=== PATIENT | male | born 1945 | race Caucasian/White ===

== ENCOUNTER 2023-01-20 07:43 | Observation (INO) | payer MEDICARE ==
[2023-01-19 12:08] LABS: BASOPHILS # (AUTO) 0.06 K/uL (0.00-0.20); BASOPHILS % (AUTO) 0.9 % (0.0-5.0); EOSINOPHILS # (AUTO) 0.22 K/uL (0.00-0.70); EOSINOPHILS % (AUTO) 3.4 % (0.0-8.0); HEMATOCRIT 46.4 % (42-54); IMMATURE GRANULOCYTE ABSOLUTE 0.02 K/uL (0-1); LYMPHOCYTES # (AUTO) 1.4 K/uL (1.0-4.8); LYMPHOCYTES % (AUTO) 22.2 % (21.0-51.0); MEAN CORPUSCULAR HEMOGLOBIN 29.7 pg (27.0-33.0); MEAN CORPUSCULAR HGB CONC 33.6 g/dL (32.0-36.0); MEAN CORPUSCULAR VOLUME 88.2 fL (79-99); MONOCYTES # (AUTO) 0.7 K/uL (0.1-1.0); MONOCYTES % (AUTO) 10.3 % (3.0-13.0); NEUTROPHILS % (AUTO) 62.9 % (40.0-77.0); PLATELET COUNT (AUTO) 245 K/uL (130-400); RED BLOOD CELL COUNT(AUTO) 5.26 MIL/uL (4.50-6.20); RED CELL DISTRIBUTION WIDTH 13.1 % (11.0-15.5); WHITE BLOOD COUNT (AUTO) 6.4 K/uL (4.8-10.8)
[2023-01-19 12:13] LABS: INR 0.97 (0.85-1.15); PROTHROMBIN TIME 11.3 SEC (9.6-11.6)
[2023-01-19 12:14] LABS: PARTIAL THROMBOPLASTIN TIME 29.7 SEC (26.3-35.5)
[2023-01-19 12:40] VITALS: BP 137/79; PULSE 60; RESP 18
[2023-01-19 12:42] LABS: CREATININE 1.1 mg/dL (0.5-1.5); POTASSIUM 4.6 mmol/L (3.5-5.1)
[~2023-01-20] VITALS: Ht 177.8 cm; Wt 87.3 kg
[2023-01-20] VITALS (34 sets, daily range): BP systolic 110–151; BP diastolic 59–118; PULSE 59–92; RESP 12–20; O2SAT 96
[~2023-01-20 07:43] MED LIST: ASPI-1005 PO; LOSA100T59 PO; METO-409 PO; NIFE-78 PO; ROSU20TA73 PO; SPIR50TA5 PO
[2023-01-20] MEDS ORDERED: CEFAZOLIN SODIUM 2 GM VIAL ONE (08:09)
[2023-01-20] MEDS ORDERED: LACTATED RINGERS 1000ML 1,000 ML IV ONE (08:10)
[2023-01-20] MEDS ORDERED: TRANEXAMIC ACID 1000MG/10ML ONE ×2 (09:03→10:59)
[2023-01-20] MEDS ORDERED: FAMOTIDINE 20MG VIAL IV ONE (10:01)
[2023-01-20] MEDS ORDERED: HYDROMORPHONE 1 MG INJ ONE (10:01)
[2023-01-20] MEDS ORDERED: GLYCOPYRROLATE 1 MG/5 ML SYRINGE ONE (10:06)
[2023-01-20] MEDS ORDERED: PROPOFOL 10 MG/ML 20ML VIAL IV ONE ×2 (10:06→10:30)
[2023-01-20] MEDS ORDERED: FENTANYL CITRATE PF 50 MCG/1 ML 2ML VIAL ONE ×2 (10:06→10:07)
[2023-01-20] MEDS ORDERED: LIDOCAINE PF 100MG/5ML (2%) SYRINGE 5ML ONE (10:06)
[2023-01-20] MEDS ORDERED: ROCURONIUM 10MG/1ML SYR 10 MG/ML ML ONE (10:07)
[2023-01-20] MEDS ORDERED: SUCCINYLCHOLINE CHLORIDE 20 MG/ML 10 ML VIAL ONE (10:07)
[2023-01-20] MEDS ORDERED: ROPIVACAINE 0.5% 5MG/ML 30ML IJ ONE (10:14)
[2023-01-20] MEDS ORDERED: EPHEDRINE SULFATE 50 MG/ML AMPULE ONE (10:45)
[2023-01-20] MEDS ORDERED: ONDANSETRON 4MG INJ ONE (11:39)
[2023-01-20] MEDS ORDERED: NEOSTIGMINE 5MG/5ML SYR IV ONE (12:40)
[2023-01-20] MEDS: 0.9%NACL 1000ML 1,000 ML IV SCH (13:00)
[2023-01-20] MEDS: ACETAMINOPHEN 1,000 MG/100 ML VIAL IV SCH ×2 (13:00→19:48)
[2023-01-20] MEDS ORDERED: ONDANSETRON 4MG INJ IVP PRN (13:00)
[2023-01-20] MEDS ORDERED: ACETAMINOPHEN 1,000 MG/100 ML VIAL IV ONE (13:10)
[2023-01-20] MEDS: IBUPROFEN 800MG + NS 250ML IV SCH (16:26)
[2023-01-20] MEDS: CEFAZOLIN SODIUM 2 GM VIAL IVPB SCH (18:12)
[2023-01-20] MEDS: LOSARTAN 100 MG TABLET PO SCH (19:48)
[2023-01-20] MEDS: ASPIRIN 81 MG EC TAB PO SCH (19:48)
[2023-01-20] MEDS: NIFEDIPINE ER 30 MG TAB PO SCH (19:48)
[2023-01-20] MEDS: FAMOTIDINE 20MG TAB PO SCH (19:48)
[2023-01-20] MEDS ORDERED: NON-FORMULARY MEDICATION 1 EACH (Nifedipine (Nifedipine ER) 30 MG) PO SCH (21:00)
[2023-01-20] MEDS ORDERED: MORPHINE 4 MG SYG ONE (22:36)
[2023-01-20] MEDS ORDERED: HYDROCODONE/ACETAMINOPHEN 5/325 MG TAB PO PRN (23:00)
[2023-01-20] MEDS ORDERED: MORPHINE 4 MG SYG IVP PRN (23:00)
[2023-01-21] MEDS: IBUPROFEN 800MG + NS 250ML IV SCH ×2 (00:06→09:13)
[2023-01-21] MEDS: ACETAMINOPHEN 1,000 MG/100 ML VIAL IV SCH (01:00)
[2023-01-21] MEDS: HYDROCODONE/ACETAMINOPHEN 10/325 MG TAB PO PRN ×5 (01:17→21:29)
[2023-01-21] MEDS: CEFAZOLIN SODIUM 2 GM VIAL IVPB SCH (01:21)
[2023-01-21 04:05] LABS: HEMATOCRIT 38.6 % (42-54); MEAN CORPUSCULAR HEMOGLOBIN 29.6 pg (27.0-33.0); MEAN CORPUSCULAR HGB CONC 33.7 g/dL (32.0-36.0); MEAN CORPUSCULAR VOLUME 87.9 fL (79-99); RED BLOOD CELL COUNT(AUTO) 4.39 MIL/uL (4.50-6.20); WHITE BLOOD COUNT (AUTO) 9.4 K/uL (4.8-10.8)
[2023-01-21 04:13] VITALS: BP 93/54; PULSE 66; RESP 21
[2023-01-21 04:29] LABS: CREATININE 1.3 mg/dL (0.5-1.5)
[2023-01-21 08:29] VITALS: BP 92/53; PULSE 66; RESP 18
[2023-01-21] MEDS ORDERED: NON-FORMULARY MEDICATION 1 EACH (Metoprolol Succinate 100 MG) PO SCH (09:00)
[2023-01-21] MEDS ORDERED: NON-FORMULARY MEDICATION 1 EACH (Spironolactone 50 MG) PO SCH (09:00)
[2023-01-21] MEDS: METOPROLOL SUCCINATE 50 MG TAB.SR.24H PO SCH (09:00)
[2023-01-21] MEDS: SPIRONOLACTONE 25 MG TAB PO SCH (09:13)
[2023-01-21] MEDS: POLYETHYLENE GLYCOL 3350 17 GM POWD.PACK PO SCH (09:13)
[2023-01-21] MEDS: ASPIRIN 81 MG EC TAB PO SCH ×2 (09:13→19:56)
[2023-01-21] MEDS: FAMOTIDINE 20MG TAB PO SCH ×2 (09:13→19:56)
[2023-01-21 12:01] VITALS: BP 115/61; PULSE 66; RESP 18
[2023-01-21 17:00] VITALS: BP 111/52; PULSE 59; RESP 17
[2023-01-21 19:00] VITALS: BP 119/54; PULSE 77; RESP 20
[2023-01-21] MEDS: NIFEDIPINE ER 30 MG TAB PO SCH (19:56)
[2023-01-21] MEDS: FERROUS SULFATE 325 MG TABLET.DR PO SCH (19:56)
[2023-01-21] MEDS: LOSARTAN 100 MG TABLET PO SCH (19:56)
[2023-01-21] MEDS: 0.9%NACL 1000ML 1,000 ML IV SCH (20:05)
[2023-01-21 23:30] VITALS: BP 94/55; PULSE 75; RESP 19
[2023-01-22 04:00] VITALS: BP 108/57; PULSE 67; RESP 18
[2023-01-22 07:56] VITALS: BP 113/58; PULSE 77; RESP 19
[2023-01-22 08:00] VITALS: O2SAT 92
[2023-01-22] MEDS: FAMOTIDINE 20MG TAB PO SCH (08:33)
[2023-01-22] MEDS: FERROUS SULFATE 325 MG TABLET.DR PO SCH (08:33)
[2023-01-22] MEDS: ASPIRIN 81 MG EC TAB PO SCH (08:33)
[2023-01-22] MEDS: POLYETHYLENE GLYCOL 3350 17 GM POWD.PACK PO SCH (08:33)
[2023-01-22] MEDS: SPIRONOLACTONE 25 MG TAB PO SCH (08:33)
[2023-01-22] MEDS: METOPROLOL SUCCINATE 50 MG TAB.SR.24H PO SCH (09:00)
[2023-01-22] MEDS: HYDROCODONE/ACETAMINOPHEN 10/325 MG TAB PO PRN (10:06)
[2023-01-22 11:55] VITALS: BP 122/55; PULSE 60; RESP 19
[2023-01-23] MEDS ORDERED: BISACODYL 10 MG SUPP.RECT RC PRN (13:00)
== END 2023-01-22 16:00 | disposition home or self-care (01) ==
LOC: DAH 07:43 → DAHIP 07:44 → DAH 07:44 → 4AH 16:18
PROVIDERS: ADMIT Orthopaedic Surgery; ATTEND Orthopaedic Surgery
DX: M17.11 Unilateral primary osteoarthritis, right knee (principal); G89.18 Other acute postprocedural pain; I25.10 Atherosclerotic heart disease of native coronary artery without angina pectoris; E78.5 Hyperlipidemia, unspecified; I12.9 Hypertensive chronic kidney disease with stage 1 through stage 4 chronic kidney disease, or unspecified chronic kidney disease; N18.9 Chronic kidney disease, unspecified; I25.2 Old myocardial infarction; Z95.1 Presence of aortocoronary bypass graft; Z79.899 Other long term (current) drug therapy
CPT/HCPCS: 80048 ×2; 85025; 85610; 85730; 36415 ×2; 93005; 87641; 96365; 96366 ×2; 96375 ×3; 96368; 27447; 64447; 85027; 97161; 97039 ×3; 97116 ×4; 97530 ×4; A6260; G0378 ×46; C1776 ×4; C1713; A4663; J7030; J7120; J3490 ×5; J3010; J1170; J2710; J0330; J2001; J2704 ×2; J2405 ×2; J2270 ×2; J2795; J1741 ×3; J0690 ×3; A6223; G0168; A4930; A4649; A6212; A5120; A4215; A4223; A4222; A4221